=== PATIENT | male | born 1940 | race Caucasian/White ===

== ENCOUNTER → 2017-04-26 | Outpatient (CLI) | payer OTHER | LOC: BMCIMAGING 08:18 | PROVIDERS: ATTEND Family Medicine | DX: S62.617A Displaced fracture of proximal phalanx of left little finger, initial encounter for closed fracture (principal); W01.0XXA Fall on same level from slipping, tripping and stumbling without subsequent striking against object, initial encounter ==

== ENCOUNTER 2018-07-01 15:49 | Inpatient (IN) | payer OTHER ==
[2018-07-01] MEDS ORDERED: HYDROmorphONE/DILAUDID 1 MG/ML INJ IVP PRN (16:58)
[2018-07-01] MEDS ORDERED: ONDANSETRON DISINTEGRATING 4 MG TAB PO PRN (16:59)
[2018-07-01] MEDS: KETOROLAC 15 MG/1 ML SDV IVP SCH ×2 (17:53→23:22)
--- NOTE | 2018-07-01 18:04 | GHP ---
DATE OF ADMISSION: 07/01/2018 CHIEF COMPLAINT: Abdominal pain. 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 The patient reports that he was recovering well from surgery when 3 days ago he started to experience diarrhea, abdominal pain, and abdominal distention. He took Imodium, which improved his symptoms and produced a normal bowel movement this morning. He denies fevers and chills. He denies nausea and vomiting. He has been eating a regular diet, although he does endorse a lack of appetite. PAST MEDICAL HISTORY: None. PAST SURGICAL HISTORY: Appendectomy. MEDICATION LIST: This has not been reconciled. ALLERGIES: No known drug allergies. FAMILY MEDICAL HISTORY: Noncontributory. SOCIAL HISTORY: He is a retired physician, who is and lives in [place]. He is a nonsmoker. PHYSICAL EXAM: GENERAL: Well-appearing, well dressed, male in no acute distress. HEENT: Normocephalic, atraumatic. No gross hearing deficits. Mucous membranes moist. Pupils are equal and round. CARDIAC: Regular rate and rhythm. No clicks, murmurs, or rubs. RESPIRATORY: Lung sounds are clear to auscultation bilaterally, no increased work of breathing. ABDOMEN: Soft, but moderately distended, tender to palpation in the lower midline region. INTEGUMENTARY: Skin is warm and dry, no rashes. NEUROLOGIC: Alert and oriented x3. PSYCHIATRIC: Appropriate mood and affect. IMPRESSION/PLAN: This is a 78-year-old male who recently underwent laparoscopic hernia repair 3 weeks ago. He presented today with increased abdominal pain and bloating x3 days. A [address] way abdominal x-ray revealed a high grade small bowel obstruction. This is likely due to adhesions from his previous open appendectomy surgery several years ago, as well as his most recent inguinal hernia repair. PLAN: The plan is to admit the patient for observation. We will plan to manage him with bowel rest and IV hydration. He does not need an NG tube at this time, but we did inform him that should he start becoming nauseated or if he starts vomiting this will warrant placement of an NG tube. We also briefly discussed the possibility of surgery should his symptoms not resolve with conservative measures. The patient understands and wishes to proceed with hospital admission. /[id number]/MODL MTDD
[2018-07-01] MEDS: POTASSIUM Cl (KCl) 10 MEQ in D5W 1/2 NS 1,000 ML IV SCH (18:45)
[2018-07-02] MEDS: KETOROLAC 15 MG/1 ML SDV IVP SCH ×4 (05:15→22:47)
[2018-07-02] MEDS: POTASSIUM Cl (KCl) 10 MEQ in D5W 1/2 NS 1,000 ML IV SCH ×3 (05:15→22:48)
--- NOTE | 2018-07-02 09:57 | PDMN ---
Medical Necessity Medical necessity: [facility] [place] Intestinal Obstruction: 78 y/o s/p hernia repair in May 2018, presents to office w/ abd pain and distension. Scans show high grade small bowel obstruction, Pt direct admit to hospital for medical intervention, IV fluids, NPO, potential for surgery.
--- NOTE | 2018-07-02 10:27 | SOAPPROG ---
SOAP Progress Note Assessment/Plan: Assessment/Plan: 78 y M c SBO. Hx appy and LIH repair. Pain and nausea improving. Some loose stool. No definite flatus. Politely refusing NGT. Repeat AXR. Discussed with Dr. Buckner. If worse or no improvement may need surgery. Do feel that NGT could be beneficial--relayed this to patient. Continue conservative measures for now. S: see above. O: alert, nad ncat, mmm chest clear rrr hyperactive BS, normal tone, softly distended 07/02/18 10:24 Objective: Vital Signs Temp Pulse Resp BP Pulse Ox 36.7 C 60 14 117/64 94 07/02/18 08:00 07/02/18 08:00 07/02/18 08:00 07/02/18 08:00 07/02/18 08:00 07/01/18 07/02/18 07/03/18 05:59 05:59 05:59 Intake Total 1002 Balance 1002 ICD10 Worksheet Patient Problems: Problems Problem Status Onset SBO (small bowel obstruction) Acute - ICD10 Problem Qualifiers (1) SBO (small bowel obstruction)
--- NOTE | 2018-07-02 14:28 | ASMTCMCOM ---
CM Note CM Note Notes: Spoke with pt and dtr in the room. Pt has lives independently at home with his who is MDPOA and has been ambulating frequently in the halls. Pt anticipates discharge home independently upon discharge. No therapies ordered at this time. CM to follow. D/C Plan: Independent Date Signed: 07/02/2018 02:28 PM Electronically Signed By:Kelle Harris
[2018-07-02] MEDS ORDERED: ACETAMINOPHEN 650 MG SUPP PR PRN (15:45)
[2018-07-03] MEDS: KETOROLAC 15 MG/1 ML SDV IVP SCH ×3 (05:14→19:37)
[2018-07-03] MEDS: POTASSIUM Cl (KCl) 10 MEQ in D5W 1/2 NS 1,000 ML IV SCH ×2 (05:16→13:08)
--- NOTE | 2018-07-03 09:43 | SOAPPROG ---
SOAP Progress Note Assessment/Plan: Assessment/Plan: 78 y M c SBO. Hx appy and LIH repair. AXR yesterday improved, not resolved. Continue conservative management. AXR in am. Need for surgery still a possibility. Also seen by Dr. Buckner yesterday. S: some abdominal cramping last night. Dilaudid helped and then slept very well. Still no gas. Mild nausea--unsure if it is more or less. O: alert, nad ncat, mmm chest clear rrr softly distended, hypoactive BS today, no rebound or guarding 07/03/18 09:40 Objective: Vital Signs Temp Pulse Resp BP Pulse Ox 36.5 C 57 L 16 127/65 H 92 07/03/18 07:22 07/03/18 07:22 07/03/18 07:22 07/03/18 07:22 07/03/18 07:22 07/02/18 07/03/18 07/04/18 05:59 05:59 05:59 Intake Total 1002 2980 Balance 1002 2980 ICD10 Worksheet Patient Problems: Problems Problem Status Onset SBO (small bowel obstruction) Acute - ICD10 Problem Qualifiers (1) SBO (small bowel obstruction)
--- NOTE | 2018-07-03 16:13 | SOAPPROG ---
FLETCHER Progress Note Assessment/Plan: Assessment: SEEMS BETTER BUT STILL NOT WNL/ WILL TRY CT SCAN TO EVAL SBO Plan:CT SCAN 07/03/18 16:13 Objective: Vital Signs Temp Pulse Resp BP Pulse Ox 36.8 C 57 L 12 127/69 H 96 07/03/18 15:51 07/03/18 15:51 07/03/18 15:51 07/03/18 15:51 07/03/18 15:51 07/02/18 07/03/18 07/04/18 05:59 05:59 05:59 Intake Total 1002 2980 Balance 1002 2980 ICD10 Worksheet Patient Problems: Problems Problem Status Onset SBO (small bowel obstruction) Acute
[2018-07-03] MEDS ORDERED: IOPAMIDOL (ISOVUE-300) 100 ML BTL ONE (16:50)
[2018-07-03] MEDS: PANTOPRAZOLE SODIUM 40 MG VIAL IVP SCH (21:05)
[2018-07-04] MEDS: KETOROLAC 15 MG/1 ML SDV IVP SCH ×3 (01:05→12:49)
[2018-07-04] MEDS: POTASSIUM Cl (KCl) 10 MEQ in D5W 1/2 NS 1,000 ML IV SCH (01:27)
[2018-07-04] MEDS: PANTOPRAZOLE SODIUM 40 MG VIAL IVP SCH ×2 (08:10→20:47)
--- NOTE | 2018-07-04 08:33 | SOAPPROG ---
FLETCHER Progress Note Assessment/Plan: Assessment: 78 y/o M s/p lap inguinal hernia repair 3 weeks ago, now with SBO CT showed gastritis and duodenitis and no SBO. Pt started on protonix yesterday. S: Feels better today. Denies pain. Denies nausea/vomiting. Had several bouts of diarrhea following CT with oral contrast yesterday. Passing some gas as well. O: Alert Afebrile RRR No increased WOB Abdomen: slightly distended, but soft, normoactive BS Plan: Hope to avoid surgery, but still a possibility. Will see how clear liquids go today, possibly advance diet later today. 07/04/18 08:30 Objective: Vital Signs Temp Pulse Resp BP Pulse Ox 36.8 C 55 L 16 131/67 H 92 07/04/18 08:00 07/04/18 08:00 07/04/18 08:00 07/04/18 08:00 07/04/18 08:00 07/03/18 07/04/18 07/05/18 05:59 05:59 05:59 Intake Total 2980 100 Balance 2980 100 ICD10 Worksheet Patient Problems: Problems Problem Status Onset SBO (small bowel obstruction) Acute
[2018-07-04] MEDS: CHOLECALCIFEROL VIT D3 2,000 UNITS TAB/CAP PO SCH (15:05)
[2018-07-04] MEDS: HYDROCHLOROTHIAZIDE 25 MG TAB PO SCH (15:06)
[2018-07-04] MEDS: PRAVASTATIN SODIUM 20 MG TAB PO SCH (20:47)
[2018-07-04] MEDS: ZOLPIDEM TARTRATE 5 MG TAB PO SCH (20:47)
[2018-07-05] MEDS: PANTOPRAZOLE SODIUM 40 MG VIAL IVP SCH ×2 (08:15→21:48)
[2018-07-05] MEDS ORDERED: HEPARIN 1000 UNIT/1 ML MDV ONE (09:08)
[2018-07-05] MEDS ORDERED: BUPIVACAINE 0.5% 30 ML SDV ONE (09:08)
[2018-07-05] MEDS ORDERED: ceFAZolin 1 GM/5 ML SYR ONE (09:09)
[2018-07-05] MEDS: CHOLECALCIFEROL VIT D3 2,000 UNITS TAB/CAP PO SCH (09:20)
[2018-07-05] MEDS: HYDROCHLOROTHIAZIDE 25 MG TAB PO SCH (09:21)
[2018-07-05] MEDS ORDERED: PROPOFOL/EMULSION 500 MG/50 ML BOTTLE IV ONE (09:26)
[2018-07-05] MEDS ORDERED: fentaNYL 100 MCG/2 ML INJ ONE ×2 (09:27→10:02)
[2018-07-05] MEDS ORDERED: ceFAZolin 2 GM/DEXTROSE 100 ML IV ONE (09:30)
[2018-07-05] MEDS ORDERED: HYDROmorphONE/DILAUDID 1 MG/ML INJ IVP PRN (09:52)
[2018-07-05] MEDS ORDERED: DEXAMETHASONE 4 MG/ML VIAL IVP PRN (09:52)
[2018-07-05] MEDS ORDERED: NALOXONE HCL 0.4 MG/ML INJ IVP PRN (09:52)
[2018-07-05] MEDS ORDERED: fentaNYL 100 MCG/2 ML INJ IVP PRN (09:52)
[2018-07-05] MEDS ORDERED: ONDANSETRON 4 MG/2 ML VIAL IVP PRN (09:52)
[2018-07-05] MEDS ORDERED: ALBUTEROL 3 ML DEYVIAL IH PRN (09:52)
--- NOTE | 2018-07-05 09:52 | PDANEPAE ---
ANE History of Present Illness here for ex-lap KARLA ANE Past Medical History - Cardiovascular History Hx Hypertension: Yes Hx Arrhythmias: No Hx Chest Pain: No Hx Coronary Artery / Peripheral Vascular Disease: No Hx CHF / Valvular Disease: No Hx Palpitations: No - Pulmonary History Hx COPD: No Hx Asthma/Reactive Airway Disease: No Hx Recent Upper Respiratory Infection: No Hx Oxygen in Use at Home: No Hx Sleep Apnea: No Sleep Apnea Screening Result - Last Documented: Negative - Endocrine History Hx Diabetes: No ANE Review of Systems Review of systems is: negative Review of Systems: - Exercise capacity Exercise capacity: >=4 METS ANE Patient History - Allergies Allergies/Adverse Reactions: No Known Allergies Allergy (Unverified 07/01/18 16:46) - Home Medications Home medications: home medication list seen and reviewed Home Medications: Cholecalciferol Vit D3 [Vitamin D3 2000 units tab (OTC)] 2,000 units PO DAILY [Last Taken Unknown] Hydrochlorothiazide [HCTZ (*)] 12.5 mg PO DAILY 07/01/18 [Last Taken 07/01/18] Simvastatin [Zocor] 10 mg PO HS 07/01/18 [Last Taken 06/30/18] - NPO status NPO Status: no food or drink >8 hours NPO Since - Liquids (Date): 07/04/18 NPO Since - Liquids (Time): 23:00 NPO Since - Solids (Date): 07/04/18 NPO Since - Solids (Time): 23:00 - Anes Hx Anes Hx: no prior problems - Smoking Hx Smoking Status: Never smoked ANE Labs/Vital Signs - Vital Signs Vital Signs: reviewed preoperatively; see RN documention for details Blood Pressure: 141/90 Heart Rate: 58 Respiratory Rate: 16 O2 Sat (%): 95 Height: 167.64 cm Weight: 68.492 kg ANE Physical Exam - Airway Neck exam: FROM Mallampati Score: Class 1 - Pulmonary Pulmonary: no respiratory distress - Cardiovascular Cardiovascular: regular rate and rhythym - ASA Status ASA Status: II ANE Anesthesia Plan Anesthesia Plan: general endotracheal anesthesia
--- NOTE | 2018-07-05 10:45 | ASMTCMCOM ---
CM Note CM Note Notes: CM reviewed pts chart. The plan remains the same. Pt will d/c home without any needs when medically stable. No therapies ordered at this time. CM available for changes. Plan: Independent Date Signed: 07/05/2018 10:45 AM Electronically Signed By:HELIO Brock
[2018-07-05] MEDS ORDERED: SUGAMMADEX SODIUM 200 MG/2 ML VIAL IVP ONE (10:58)
[2018-07-05] MEDS ORDERED: HYDROmorphone HCL 0.5 MG/0.5 ML SYR IVP PRN ×2 (11:00→11:08)
[2018-07-05] MEDS ORDERED: OXYCODONE/APAP 5/325 TAB PO PRN (11:08)
--- NOTE | 2018-07-05 11:11 | POSTOPPROG ---
Post Op Note Date of Operation: 07/05/18 Surgeon: Lee Buckner Painting Machine Operator: Courtney Mary Anesthesiologist: Darwin Lopez Anesthesia: GET(General Endotracheal) Pre-op Diagnosis: SBO Post-op Diagnosis: same Procedure: ex laparoscopy, lysis of adhesions Findings: small bowel adhered in pelvis at hernia repair, mesh covered c peritoneum Inf/Abcess present in the surg proc area at time of surgery?: No EBL: Minimal Complications: none Specimen(s): none
[2018-07-05] MEDS ORDERED: KETOROLAC 15 MG/1 ML SDV ONE (11:48)
[2018-07-05] MEDS: D5W 1/2 NS 1,000 ML IV SCH ×2 (14:40→21:53)
--- NOTE | 2018-07-05 17:18 | SOAPPROG ---
SOAP Progress Note Assessment/Plan: Assessment: SEEMS BETTER BUT STILL NOT WNL/ WILL TRY CT SCAN TO EVAL SBO Plan:CT SCAN 07/03/18 16:13 07/05/18 17:17 POSTOP FEELING WELL/ AFEBRILE/ WOUNDS OK Objective: Vital Signs Temp Pulse Resp BP Pulse Ox 36.3 C 57 L 19 122/63 H 91 L 07/05/18 15:29 07/05/18 15:29 07/05/18 15:29 07/05/18 15:29 07/05/18 15:29 07/04/18 07/05/18 07/06/18 05:59 05:59 05:59 Intake Total 840 702 4100 Output Total 260 Balance 100 250 750 ICD10 Worksheet Patient Problems: Problems Problem Status Onset SBO (small bowel obstruction) Acute
[2018-07-05] MEDS: PRAVASTATIN SODIUM 20 MG TAB PO SCH (21:48)
[2018-07-05] MEDS: ZOLPIDEM TARTRATE 5 MG TAB PO SCH (21:48)
[2018-07-06] MEDS: D5W 1/2 NS 1,000 ML IV SCH (07:12)
[2018-07-06] MEDS: PANTOPRAZOLE SODIUM 40 MG VIAL IVP SCH (08:33)
--- NOTE | 2018-07-06 09:01 | SOAPPROG ---
SOAP Progress Note Assessment/Plan: Assessment/Plan: 78 y M c SBO. Hx appy and inguinal hernia repair. s/p ex laparoscopy and adhesiolysis, POD#1. Clear liquids. PO protonix. Ok to leave out IV if tolerates PO. Dispo: pending. S: minimal pain. +flatus this am. no nausea. O: alert, nad ncat, mmm chest clear rrr inc cdi, +BS, mild hypoactive 07/06/18 08:57 Objective: Vital Signs Temp Pulse Resp BP Pulse Ox 36.3 C 53 L 18 113/56 L 94 07/06/18 07:14 07/06/18 07:14 07/06/18 07:14 07/06/18 07:14 07/06/18 07:14 07/05/18 07/06/18 07/07/18 05:59 05:59 05:59 Intake Total 250 2689 Output Total 260 0 Balance 250 2429 0 ICD10 Worksheet Patient Problems: Problems Problem Status Onset SBO (small bowel obstruction) Acute - ICD10 Problem Qualifiers (1) SBO (small bowel obstruction)
[2018-07-06] MEDS: HYDROCHLOROTHIAZIDE 25 MG TAB PO SCH (09:16)
[2018-07-06] MEDS: CHOLECALCIFEROL VIT D3 2,000 UNITS TAB/CAP PO SCH (09:16)
[2018-07-06] MEDS: PRAVASTATIN SODIUM 20 MG TAB PO SCH (21:17)
[2018-07-06] MEDS: PANTOPRAZOLE SODIUM 40 MG TAB PO SCH ×2 (22:28→22:42)
[2018-07-06] MEDS: ZOLPIDEM TARTRATE 5 MG TAB PO SCH ×2 (22:29→22:41)
[2018-07-07 08:12] VITALS: BP 109/81
[2018-07-07] MEDS: PANTOPRAZOLE SODIUM 40 MG TAB PO SCH (09:19)
[2018-07-07] MEDS: HYDROCHLOROTHIAZIDE 25 MG TAB PO SCH (09:19)
[2018-07-07] MEDS: CHOLECALCIFEROL VIT D3 2,000 UNITS TAB/CAP PO SCH (09:19)
--- NOTE | 2018-07-07 12:37 | SOAPPROG ---
SOJOHN PAUL Progress Note Assessment/Plan: Assessment: 78 y/o M s/p lap inguinal hernia repair 3 weeks ago, now with SBO Now s/p Lap KARLA S: Feels better. Passing gas, but no BM. Denies abdominal pain. O: Alert Afebrile RRR No increased WOB Abdomen: slightly distended, but soft, normoactive BS, incisions cdi Plan: Advance to regular diet. Likely home later today. 07/07/18 12:36 Objective: Vital Signs Temp Pulse Resp BP Pulse Ox 36.4 C 55 L 18 109/81 H 94 07/07/18 08:00 07/07/18 08:00 07/07/18 08:00 07/07/18 08:00 07/07/18 08:00 07/06/18 07/07/18 07/08/18 05:59 05:59 05:59 Intake Total 2689 500 Output Total 260 0 Balance 2429 500 ICD10 Worksheet Patient Problems: Problems Problem Status Onset SBO (small bowel obstruction) Acute
--- NOTE | 2018-07-10 17:42 | GOP ---
DATE OF OPERATION: 07/05/2018 SURGEON: Lee Buckner MD FISH HATCHERY LABORER: Courtney Mary, PAC. ANESTHESIOLOGIST: Darwin Lopez MD PREOPERATIVE DIAGNOSIS: Small-bowel obstruction. POSTOPERATIVE DIAGNOSIS: Small-bowel obstruction. PROCEDURE PERFORMED: Laparoscopic adhesiolysis and repair of small bowel obstruction. FINDINGS: The patient was found to have a loop of small bowel adherent to a raw area in the peritone um adjacent to a previous old ruptured appendix scar with some exposed mesh to which the bowel was ad herent. DESCRIPTION OF PROCEDURE: Patient taken to the operating room where he received a satisfactory gener al endotracheal anesthesia by Dr. Lopez. He was placed in supine position, prepped and draped in [facility] sterile fashion. A periumbilical incision was made. A Veress needle was inserted. Pneumoperito neum was established. Trocar was introduced. Laparoscope introduced. Good visualization was obtain ed. 2 other trocars were eventually placed in the lower abdomen under direct vision. There were mar ked amount of adhesions in the abdomen from his previous appendectomy. These were carefully taken do wn with the Harmonic Scalpel until the pelvis could be well visualized. After adequate exposure was achieved, it was noticed that a loop of small bowel was partially twisted and adherent to the space o n the anterior abdominal wall. This appeared to be adjacent to the hernia repair and a previous old appendectomy scar. This was very carefully and tediously taken down to avoid any injury to the bowel and underlying the bowel with some exposed mesh from the hernia repair. The bowel was carefully donya en away and remained intact with no evidence of injuries or problems. That was reduced back in the a bdomen. The mesh defect was then closed by rotating some peritoneal tissue over the mesh. This was secured in place with a Quill suture and assisted by Protac. Wound was irrigated. Hemostasis was as sured. Trocars removed under direct vision. He tolerated the procedure well, was taken to the [facility] room in good condition. There were no complications. /[id number]/MODL
--- NOTE | 2018-07-13 11:12 | GDS ---
DISCHARGE DIAGNOSES: 1. Small bowel obstruction. 2. History of appendectomy. 3. Recent history of laparoscopic inguinal hernia repairs. PROCEDURES: Laparoscopic adhesiolysis and repair of small bowel obstruction. INTRAOPERATIVE FINDINGS: Patient was found to have a loop of small bowel adherent to a raw area in t he peritoneum adjacent to previous old ruptured appendix scar with some exposed mesh to which the bow el was adherent. Special tests: X-ray upon admission was suspicious for high-grade small bowel obstruction. CT scan of the abdomen and pelvis several days later showed moderate thickening of the gastric antrum to the second portion of the duodenum suggestive of gastritis and duodenitis. Focal ulcer not delineated. No CT evidence of appendicitis, abscess, or bowel obstruction. 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 Buckner. He was admitted with several days of abdominal cramp ing and pain and anorexia associated with nausea. Abdominal x-ray suggested a high-grade small bowel obstruction. Patient was managed with bowel rest, IV fluids, and supportive care. He politely refu sed nasogastric tube. A CT scan was done as he was not readily progressing. This showed some possib le gastritis and duodenitis, which the patient appeared to be asymptomatic from. Ultimately, it was decided to bring the patient to the operating room for laparoscopy. He was found to have a loop of b owel adherent to a raw area in the peritoneum adjacent to his old appendectomy scar and hernia repair . This was carefully released. The procedure was uncomplicated, and he tolerated it well. The patient's postoperative course was relatively uneventful. His bowel function returned rather patito ckly. His diet was advanced along with this. DISCHARGE INSTRUCTIONS: Patient was discharged home in stable condition with plans for outpatient fo llowup. Limitations were discussed. /[id number]/MODL
== END 2018-07-07 16:14 | disposition home or self-care (01) | DRG 337 ==
LOC: FIMAGING 15:49 → F3E 16:55
PROVIDERS: ADMIT Surgery; ATTEND Surgery
PROC: 0DN84ZZ Release Small Intestine, Percutaneous Endoscopic Approach (ICD-10-PCS; principal; 2018-07-05 10:00)
PROC: 0DQW4ZZ Repair Peritoneum, Percutaneous Endoscopic Approach (ICD-10-PCS; principal; 2018-07-05 10:00)
DX: K56.50 Intestinal adhesions [bands], unspecified as to partial versus complete obstruction (principal); I10 Essential (primary) hypertension
CPT/HCPCS: 82565-PO; J0690; J1170; J1885; J2704; J3010; J3480; Q9967